=== PATIENT | male | born 1980 | race African-American/Black ===

== ENCOUNTER 2018-02-17 17:56 | Emergency (ER) | payer MEDICAID ==
[~2018-02-17] VITALS: Ht 180.3 cm; Wt 92.0 kg
[2018-02-17 17:57] VITALS: BP 125/86
== END 2018-02-17 19:39 | disposition left against medical advice (07) ==
LOC: ER 17:56
DX: M25.512 Pain in left shoulder (principal); Z53.21 Procedure and treatment not carried out due to patient leaving prior to being seen by health care provider

== ENCOUNTER 2018-02-18 07:19 | Emergency (ER) | payer MEDICAID ==
[~2018-02-18] VITALS: Ht 172.7 cm; Wt 74.8 kg
[2018-02-18] MEDS ORDERED: IBUPROFEN 600MG TABLET PO ONE (08:45)
[2018-02-18 10:05] VITALS: BP 122/78
== END 2018-02-18 10:14 | disposition home or self-care (01) ==
LOC: ER 07:19
DX: S62.665A Nondisplaced fracture of distal phalanx of left ring finger, initial encounter for closed fracture (principal); S43.102A Unspecified dislocation of left acromioclavicular joint, initial encounter; F12.10 Cannabis abuse, uncomplicated; Y04.0XXA Assault by unarmed brawl or fight, initial encounter; Y93.89 Activity, other specified; Y92.89 Other specified places as the place of occurrence of the external cause
CPT/HCPCS: 29130; 73030; 73060; 73080; 73090; 73140; 99283